=== PATIENT | female | born 2000 | race Caucasian/White ===

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

== ENCOUNTER 2024-07-17 06:18 | Outpatient (CLI) | payer OTHER ==
[2024-07-17 08:55] VITALS: BP 119/71; PULSE 123; RESP 16; TEMP 96.6
== END 2024-07-17 08:15 | disposition home or self-care (01) ==
LOC: FBPOP 06:18
PROVIDERS: ATTEND Obstetrics & Gynecology
DX: O48.1 Prolonged pregnancy (principal); Z3A.41 41 weeks gestation of pregnancy
CPT/HCPCS: 59025; 59200

== ENCOUNTER 2024-07-18 06:15 | Inpatient (IN) | payer OTHER ==
--- NOTE | 2024-07-17 08:32 | P.PCN ---
Date of Procedure: 07/17/24 Preoperative Diagnosis: Post-dates gestation Postoperative Diagnosis: Same Procedure(s) Performed: Dilapan-S insertion Implants: Dilapan-S 5 rods Anesthesia: none Surgeon: Alla Hernandez Estimated Blood Loss (ml): 5 IV fluids (ml): 0 Urine output (ml): 0 Pathology: none sent Condition: stable Disposition: same day Indications for Procedure: Ms. Bourgeois is a 24 year old at 41 weeks and 0 days presenting for Dilapan-S insertion for cervical ripening. The patient is attempting a TOLAC. She has a history of 1 prior section complicated by large 18 centimeter dermoid cyst removed at the time of section. She will go home for 24 hours with the Dilapan in place and return tomorrow morning for induction. Operative Findings: Cervix closed, long, high. 5 Dilapan-S rods inserted. Description of Procedure: The risks (including bleeding, infection, ruptured membranes, onset of labor, cervical tears or Dilapan-S breaking) and benefits of the procedure were discussed with the patient. Written informed consent was obtained. A sterile lighted speculum was placed into the vagina and the cervix was visualized. The cervix and vagina was cleaned with antiseptic solution. A forcep was used to grasp the cervical lip to straighten the cervical canal another ring forcep was used to grasp the handle of the Dilapan-S carla and insert the carla through the external cervical os gradually and without force. This was repeated until adequate Dilapan-S rods were inserted. A total number of 5 rods were inserted. At the conclusion of the procedure there was no vaginal bleeding. The speculum and instruments were removed.
[2024-07-18] MEDS ORDERED: LIDOCAINE 0.5% (PF) 5 MG/ML (50 ML SDV) SQ PRN (06:43)
[2024-07-18] MEDS ORDERED: METHYLERGONOVINE 0.2 MG/ML 1 ML AMP IM PRN (06:43)
[2024-07-18] MEDS ORDERED: TRANEXAMIC 1,000 MG/100ML-NACL 1,000 MG in EMPTY BAG 1 BAG IV PRN (06:43)
[2024-07-18] MEDS ORDERED: miSOPROStoL 200 MCG TAB RECTAL PRN (06:43)
[2024-07-18] MEDS ORDERED: miSOPROStoL 200 MCG TAB PO PRN (06:43)
[2024-07-18] MEDS ORDERED: CARBOPROST TROMETHAMINE 250 MCG/ML 1 ML AMP IM PRN (06:43)
[2024-07-18] MEDS ORDERED: OXYTOCIN 10 UNIT/ML 1 ML VIAL IM PRN (06:43)
[2024-07-18] MEDS ORDERED: TERBUTALINE 1 MG/ML VIAL SQ PRN (06:43)
[2024-07-18] MEDS: LACTATED RINGERS 1,000 ML IV SCH (07:10)
[2024-07-18] MEDS: OXYTOCIN 30 UNITS/500 ML NS 30 UNIT in SALINE 1 500ML.BAG IV SCH (07:11)
[2024-07-18 08:14] LABS: Basophils # (A) 0.1 k/uL (0-0.2); Basophils % (A) 0 %; Eosinophils # (A) 0.1 k/uL (0-0.7); Eosinophils % (A) 1 %; HCT 30.8 % (34.0-46.0); HGB 9.8 gm/dL (11.4-16.0); Hypochromasia Moderate; Lymphocytes # (A) 2.8 k/uL (1.0-4.8); Lymphocytes % (A) 22 %; MCH 25.5 pg (25.0-35.0); MCHC 31.8 g/dL (31.0-37.0); Mean Platelet Volume 9.4; Monocytes # (A) 0.6 k/uL (0-1.0); Monocytes % (A) 5 %; Neutrophils # (A) 9.2 k/uL (1.3-7.7); Neutrophils % (A) 71 %; Platelet Count 326 k/uL (150-450); RBC 3.85 m/uL (3.80-5.40); RDW 15.3 % (11.5-15.5)
--- NOTE | 2024-07-18 08:51 | P.HPOB ---
History of Present Illness H&P Date: 07/18/24 Chief Complaint: Induction of labor Ms. Bourgeois is a 24 year old at 41 weeks and 1 days with EDC of 07/10/24 by LMP consistent with 34 week US presenting for induction of labor for post- dates. This will be a TOLAC. Her has been complicated by limited care. Obstetric history: 1 FTCS after failed induction of labor (patient did not dilate past 5cm for several hours) likely secondary to the 22 centimeter dermoid cyst that was then removed at the time of the work-up: blood type O positive, antibody screen negative, rubella immu ne, VDRL non-reactive, HBsAg negative, HIV negative, HCV Ab non-reactive, gonorrhea negative, chlamydia negative, 1 hour GTT wnl, GBS negative. Past Medical History Past Medical History: Asthma, No Reported History History of Any Multi-Drug Resistant Organisms: None Reported Past Surgical History: No Surgical Hx Reported Past Anesthesia/Blood Transfusion Reactions: No Reported Reaction Past Psychological History: Anxiety Smoking Status: Never smoker Past Alcohol Use History: None Reported Past Drug Use History: None Reported - Past Family History Mother Family Medical History: Hypertension Medications and Allergies Home Medications Medication Instructions Recorded Confirmed Type Vit No.180/Iron/Folic 1 tab PO DAILY 05/14/18 07/18/24 History [ Plus Tablet] Allergies Allergy/AdvReac Type Severity Reaction Status Date / Time No Known Allergies Allergy Verified 08/04/18 10:43 Exam Vital Signs Temp Pulse Resp BP Pulse Ox 07/18/24 06:37 96.8 F L 115 H 18 128/67 95 Intake and Output 07/17/24 07/18/24 07/18/24 22:59 06:59 14:59 Other: Weight 96.162 kg Focused physical exam is performed. This is a healthy-appearing in no apparent distress. Breathing is non-labored. Abdomen is gravid and non-tender. Cervical exam is 4/70/-3 after Dilapan-S is removed. AROM is undertaken with clear fluid noted. Extremities non-tender and non-edematous. heart tones are Category I and tocometer is graphing contractions every 2-4 minutes. Results Result Diagrams: 07/18/24 06:45 Abnormal Lab Results - Last 24 Hours (Table) 07/18/24 Range/Units 06:45 WBC 13.0 H (3.8-10.6) k/uL Hgb 9.8 L (11.4-16.0) gm/dL Hct 30.8 L (34.0-46.0) % Neutrophils # 9.2 H (1.3-7.7) k/uL Assessment and Plan Assessment: 24 year old at 41 weeks and 1 day presenting for induction of labor and TOLAC Plan: Admit, clear liquid diet, pitocin per protocol, continuous EFM and tocometer, epidural prn.
[2024-07-18] MEDS ORDERED: ROPIVACAINE 5 MG/ML 30 ML VIAL ONE (11:48)
[2024-07-18] MEDS ORDERED: SODIUM CHLORIDE 0.9% 250 ML BAG ONE (11:48)
[2024-07-18] MEDS ORDERED: fentaNYL (PF) 50 MCG/ML 5 ML AMP ONE (11:48)
[2024-07-18] MEDS ORDERED: OXYTOCIN 30 UNITS/500 ML NS BAG IV ONE (20:24)
[2024-07-18] MEDS ORDERED: KETOROLAC 15 MG/ML 1 ML VIAL ONE (20:24)
[2024-07-18] MEDS ORDERED: ONDANSETRON 4 MG/2 ML VIAL ONE (20:24)
[2024-07-18] MEDS ORDERED: fentaNYL (PF) 50 MCG/ML 2 ML AMP ONE (20:24)
[2024-07-18] MEDS ORDERED: MORPHINE SULFATE (PF) 0.3 MG/0.3 ML SYR ONE (20:24)
[2024-07-18] MEDS ORDERED: METOCLOPRAMIDE 5 MG/ML 2 ML VIAL IVP PRN (21:12)
[2024-07-18] MEDS ORDERED: ONDANSETRON 4 MG/2 ML VIAL IVP PRN (21:12)
[2024-07-18] MEDS ORDERED: diphenhydrAMINE 25 MG CAP PO PRN (21:12)
[2024-07-18] MEDS ORDERED: ZOLPIDEM 5 MG TAB PO PRN (21:12)
[2024-07-18] MEDS ORDERED: NALOXONE 0.4 MG/ML 1 ML VIAL IV PRN (21:12)
[2024-07-18] MEDS ORDERED: diphenhydrAMINE 50 MG CAP PO PRN (21:12)
[2024-07-18] MEDS ORDERED: diphenhydrAMINE 50 MG/ML 1 ML VIAL IVP PRN ×2 (21:12)
[2024-07-18] MEDS ORDERED: SIMETHICONE 80 MG CHEWABLE PO PRN (21:12)
--- NOTE | 2024-07-18 21:12 | P.OP ---
Date of Procedure: 07/18/24 Preoperative Diagnosis: 1. Post-dates gestation at 41 weeks 2. Failed induction of labor 3. History of 1 prior section Postoperative Diagnosis: Same Procedure(s) Performed: Repeat Lower Transverse Section Implants: None Anesthesia: epidural Surgeon: Alla Hernandez Hookman #1: Shanika Cook Estimated Blood Loss (ml): 453 IV fluids (ml): 1,000 Urine output (ml): 200 (clear yellow) Pathology: none sent Condition: stable Disposition: floor Indications for Procedure: Ms. Bourgeois is a 24 year old at 41 weeks and 1 day gestation presenting for induction of labor for post-dates and TOLAC. She had Dilapan-S inserted for 24 hours through an initially closed cervix. When the Dilapan-S was removed, she was 4/70/-3. Pitocin was titrated per protocol and AROM was undertaken at 845 revealing clear amniotic fluid. Over the course of the next 12 hours, the patient did not make any further dilation despite ruptured membranes and oxytocin induction. section was recommended for maternal and well-being. The risks, benefits, and alternatives to section were discussed with the patient including risk of bleeding, infection, damage to surrounding structures including bladder/bowels/ureters, and post-operative VTE. The patient understands these risks and desires to proceed with section. Operative Findings: Colorless amniotic fluid. Viable male infant in cephalic presentation. Normal uterus, bilateral fallopian tubes, and ovaries. Description of Procedure: The patient was taken back to the operating room where spinal anesthesia was found to be adequate. Two grams of Ancef were given for infection prophylaxis. She was prepared and draped in the dorsal supine position with a leftward tilt. A Pfannenstiel skin incision was made with the scalpel. The incision was carried down to the fascia with a bovie. The fascia was incised and extended laterally with Anderson scissors. The superior aspect of the fascia was grasped with the Josiane clamps. The underlying rectus muscle was dissected off sharply with Anderson scissors. In a similar fashion, the inferior aspect of the fascia was elevated with Josiane clamps and the rectus muscle and pyramidalis were dissected off. Excellent hemostasis was achieved with the bovie. The rectus muscle was in the midline down to the level of the pubic symphysis. Pre- peritoneal fatty tissue was bluntly dissected to expose the peritoneum. The peritoneum was found to be free of adherent bowel and entered sharply with Anderson scissors. The peritoneal incision was extended superiorly and inferiorly to the bladder reflection with good visualization of the bladder. The bladder blade was inserted and vesicouterine peritoneum was identified. Intraabdominal survey revealed scant, clear peritoneal fluid and the thinned-out lower uterine segment. The vesicouterine peritoneum was opened with scissors and the bladder flap was developed. The bladder blade was repositioned to keep the bladder out of the operative field. The lower uterine segment was incised with a scalpel. The amniotic sac was ruptured with an Allis clamp and clear fluid was noted. The uterine incision was extended bluntly with lateral and upward traction. The fetus was in cephalic presentation. The head was elevated out of the pelvis with special attention paid to avoid using the uterine incision as a fulcrum. Gentle fundal pressure was applied once the head was brought into the incision. The infant was delivered with no difficulty and was noted to be crying spontaneously. The mouth and nose were suctioned with a bulb. The cord was clamped and cut. The infant was handed off to the container shop welder. IV oxytocin was initiated to facilitate uterine contractions. The placenta was delivered intact with manual massage of uterine fundus. The uterus was then exteriorized and the inside of the uterus was gently wiped with a lap sponge to assure complete removal of placental membranes. The uterine incision was closed with 0-Vicryl suture in a running locked fashion. A second imbricating layer was placed with 0-Vicryl. The ovaries and tubes were found to be normal. The uterus, tubes, and ovaries were then gently returned to the abdominal cavity. The abdomen was copiously suction irrigated. The uterine incision was reinspected and excellent hemostasis was noted. The fascial layer was closed with a 0-Vicryl suture. The subcutaneous tissue was reapproximated with 2-0 Plain Gut. The skin was closed with 4-0 Monocryl in a subcuticular fashion.The patient tolerated the procedure well. All the counts were correct times two. The patient was taken to the recovery room in a stable condition. A physician surgical device sales representative was utilized for the entire procedure due to the need for tissue retraction, dissection of vital structures, prevention and management of blood loss, and reduction in overall operative and anesthesia time as is the standard of care.
[2024-07-18] MEDS: AZITHROMYCIN 500 MG in SODIUM CHLORIDE 0.9% 250 ML IVPB STA (21:25)
[2024-07-19] MEDS: KETOROLAC 15 MG/ML 1 ML VIAL IVP SCH (05:12)
[2024-07-19 06:24] LABS: Basophils % (A) 0 %; Eosinophils % (A) 0 %; HCT 28.4 % (34.0-46.0); Hypochromasia Marked; Lymphocytes # (A) 2.5 k/uL (1.0-4.8); Lymphocytes % (A) 16 %; MCH 25.5 pg (25.0-35.0); MCHC 31.8 g/dL (31.0-37.0); MCV 80.2 fL (80.0-100.0); Mean Platelet Volume 8.8; Monocytes # (A) 0.6 k/uL (0-1.0); Monocytes % (A) 4 %; Neutrophils # (A) 12.1 k/uL (1.3-7.7); Neutrophils % (A) 78 %; Platelet Count 265 k/uL (150-450); RBC 3.54 m/uL (3.80-5.40); RDW 15.7 % (11.5-15.5); WBC 15.5 k/uL (3.8-10.6)
[2024-07-19] MEDS: SENNOSIDES-DOCUSATE SODIUM 1 EACH TAB PO SCH (08:15)
[2024-07-19] MEDS: ACETAMINOPHEN TAB 500 MG TAB PO SCH ×2 (08:16→08:34)
[2024-07-19] MEDS: LACTATED RINGERS 1,000 ML IV SCH (08:22)
--- NOTE | 2024-07-19 08:34 | P.PNOBGPC ---
Subjective - Subjective Principal diagnosis: s/p repeat cesaraen section Interval history: The patient is doing well this morning and had no acute events overnight. She has no complaints this morning. She reports minimal lochia, voiding without difficulty, ambulating, and eating/drinking without nausea or vomiting. She is not yet passing flatus. She is breast feeding her without difficulty. She denies chest pain, shortness of breathing, fevers, or chills overnight. She denies pain or swelling in the legs. Patient reports: Reports appetite normal, Reports voiding normally, Reports pain well controlled, Reports ambulating normally : doing well Objective - Vital Signs Latest vital signs: Vital Signs Temp Pulse Resp BP Pulse Ox 07/19/24 01:13 97.1 F L 89 18 126/72 07/18/24 23:13 102 H 16 112/55 94 L 07/18/24 22:58 107 H 18 123/59 97 07/18/24 22:43 109 H 18 129/59 98 07/18/24 22:28 113 H 16 114/59 96 07/18/24 22:13 109 H 16 129/59 97 07/18/24 21:58 100 18 134/60 99 07/18/24 21:43 116 H 16 127/58 100 07/18/24 21:28 116 H 16 127/58 100 07/18/24 21:13 96.7 F L 113 H 18 119/80 99 Intake and Output 07/18/24 07/19/24 07/19/24 22:59 06:59 14:59 Output Total 435 1070 Balance -435 -1070 Output: Urine 1000 Uretheral (Branham) 300 Output, Quantitative 435 70 Blood Loss - Exam Extremities: Present: normal Abdomen: Present: normal appearance, soft Incision: Present: normal, dry, dressed Uterus: Present: normal, firm - Labs Labs: Abnormal Lab Results - Last 24 Hours (Table) 07/19/24 Range/Units 05:50 WBC 15.5 H (3.8-10.6) k/uL RBC 3.54 L (3.80-5.40) m/uL Hgb 9.0 L (11.4-16.0) gm/dL Hct 28.4 L (34.0-46.0) % RDW 15.7 H (11.5-15.5) % Neutrophils # 12.1 H (1.3-7.7) k/uL Assessment and Plan Assessment: 24 year old now POD#1 s/p repeat section 2/2 failed IOL Plan: 1. Postoperative. Patient meeting milestones appropriately. 2. Viable male infant. Doing well at bedside, breast feeding. Needs circumcision prior to discharge. dispo: anticipate discharge home tomorrow.
[2024-07-19 08:47] VITALS: RESP 16
--- NOTE | 2024-07-19 14:58 | P.PN ---
Progress Note - Text 07/19/24 641am 24-year-old female status post with spinal Duramorph. Patient seen and evaluated, she has a VAS of 4 with no complaints of nausea or pruritus doing well.
[2024-07-19] MEDS: IBUPROFEN 800 MG TAB PO SCH (20:10)
[2024-07-20 08:35] VITALS: BP 120/75; PULSE 98; TEMP 98
--- NOTE | 2024-07-20 11:30 | P.DS ---
Providers Date of admission: 07/18/24 06:19 Expected date of discharge: 07/20/24 Attending physician: Alla Hernandez MD Primary care physician: Stated None Hospital Course: Ms. Bourgeois is a 24 year old now POD#2 s/p repeat section at 41 weeks after failed induction of labor. Her section and post-operative course have been uncomplicated. The patient is doing well this morning and had no acute events overnight. She has no complaints this morning. She reports minimal lochia, passing flatus, voiding without difficulty, ambulating, and eating/drinking without nausea or vomiting. Infant doing well at bedside, s/p circumcision. She denies chest pain, shortness of breathing, fevers, or chills overnight. She denies pain or swelling in the legs. Postoperative restrictions are reviewed with the patient including pelvic rest for 6 weeks, no lifting heavier than 15 pounds for 6 weeks. The patient is encouraged to call the office if she experiences any heavy bleeding, foul-smelling discharge, breast complain ts, or any if she has any other concerns. She will follow up in the office with in 2 weeks for postoperative exam. All questions are answered. Assessment: 24 year old POD#2 s/p repeat Patient Condition at Discharge: Good Plan - Discharge Summary Discharge Rx Participant: Yes New Discharge Prescriptions: New Docusate [Colace] 100 mg PO BID PRN #60 capsule PRN Reason: Constipation Ibuprofen [Motrin] 600 mg PO Q6HR PRN #30 tab PRN Reason: Mild Pain (Scale 1 To 3) Acetaminophen Tab [Tylenol] 650 mg PO Q6H PRN #30 tab PRN Reason: Mild Pain (Scale 1 To 3) Ferrous Sulfate [Iron (65 MG Elemental)] 325 mg PO DAILY #30 tab No Action Vit No.180/Iron/Folic [ Plus Tablet] 1 tab PO DAILY Discharge Medication List Vit No.180/Iron/Folic [ Plus Tablet] 1 tab PO DAILY 05/14/18 [History] Acetaminophen Tab [Tylenol] 650 mg PO Q6H PRN #30 tab 07/20/24 [Rx] Docusate [Colace] 100 mg PO BID PRN #60 capsule 07/20/24 [Rx] Ferrous Sulfate [Iron (65 MG Elemental)] 325 mg PO DAILY #30 tab 07/20/24 [Rx] Ibuprofen [Motrin] 600 mg PO Q6HR PRN #30 tab 07/20/24 [Rx] Follow up Appointment(s)/Referral(s): Alla Hernandez MD [STAFF PHYSICIAN] - 2 Weeks (C/S Appointment 08-01-2024 at 2pm) Activity/Diet/Wound Care/Special Instructions: Instructions 1. Do not begin any exercise program for 3 weeks. 2. Do not resume sexual relations for 6 weeks or longer if uncomfortable. 3. You may take tub baths or showers at any time. 4. You may use tampons if desired after 6 weeks. 5. Keep any areas repaired with stitches clean and dry. 6. If you are not nursing, wear a good fitting, supportive bra during the day and limit fluid intake for at least 1 week to prevent breast engorgement. 7. Call the office, , within the next week to make appointment for your 6 week checkup if it has not already been made. 8. Report any of the following occurrences to the doctor promptly: a. Heavy, excessive bleeding b. Chills, fever c. Burning or frequency of urination d. Pain or redness and breasts if nursing e. Increasing pain or swelling of vulva (stitches). In addition to the above instructions, the following additional should be followed: 1. No heavy lifting or straining (exercising) until after 6 week checkup. 2. Keep abdominal incision clean and dry: You may wear a dressing if more comfortable. 3. Make office appointment for 2 weeks after delivery date.
== END 2024-07-20 13:00 | disposition home or self-care (01) | DRG 540 ==
LOC: 4FBP 06:19
PROVIDERS: ADMIT Obstetrics & Gynecology; ATTEND Obstetrics & Gynecology
PROC: 10D00Z1 Extraction of Products of Conception, Low, Open Approach (ICD-10-PCS; principal; 2024-07-17)
PROC: 10907ZC Drainage of Amniotic Fluid, Therapeutic from Products of Conception, Via Natural or Artificial Opening (ICD-10-PCS; 2024-07-17)
DX: O34.211 Maternal care for low transverse scar from previous cesarean delivery (principal); F41.9 Anxiety disorder, unspecified; J45.909 Unspecified asthma, uncomplicated; O62.2 Other uterine inertia; O48.0 Post-term pregnancy; O61.0 Failed medical induction of labor; Z37.0 Single live birth; O99.52 Diseases of the respiratory system complicating childbirth; O99.344 Other mental disorders complicating childbirth; Z3A.41 41 weeks gestation of pregnancy
CPT/HCPCS: 59200; 85025; 86850; 86900; 86901